=== PATIENT | female | born 1995 | race Caucasian/White ===

== ENCOUNTER 2017-06-20 09:18 | Emergency (ER) | payer MEDICAID, OTHER ==
--- NOTE | 2017-06-20 10:14 | ED Physician Documentation ---
PD HPI SKIN - Stated complaint Stated Complaint: RASH ON NECK - Chief complaint Chief Complaint: Wound - History obtained from History obtained from: Patient, Family - History of Present Illness Timing - onset: How many days ago (3) Timing - duration: Days (3) Timing - details: Gradual onset, Still present Location: Neck Quality / character: Itchy, Discolored Improved by: Benadryl, Steroid cream Contributing factors: Unknown Similar symptoms before: Diagnosis (contact dermatitis) Recently seen: Not recently seen - Additional information Additional information: 22-year-old female is developed a rash around her neck. She has had something like this similarly previously with a contact dermatitis. She required a short course of steroid with that. She did get some hydrocortisone cream yesterday she applied it to the area she has not had improvement and she is come to the emergency department. She is uncertain about what she is reactive to she does believe that the last time this happened where it was not responsive to local measures it was a result of a cream she put on her neck with a scent in it. Review of Systems Constitutional: denies: Fever Eyes: denies: Decreased vision Nose: denies: Congestion Throat: denies: Sore throat Respiratory: denies: Dyspnea, Cough, Wheezing GI: denies: Vomiting PD PAST MEDICAL HISTORY - Past Surgical History Past Surgical History: No - Present Medications Home Medications: Ambulatory Orders Medication Instructions Recorded Confirmed Prednisone 40 mg PO DAILY #20 tab.ds.pk 06/20/17 - Allergies Allergies/Adverse Reactions: Allergies Allergy/AdvReac Type Severity Reaction Status Date / Time No Known Drug Allergies Allergy Verified 11/30/14 16:21 - Social History Does the pt smoke?: No Smoking Status: Never smoker Does the pt drink ETOH?: No Does the pt have substance abuse?: No - Immunizations Immunizations are current?: No - POLST Patient has POLST: No PD ED PE NORMAL - Vitals Vital signs reviewed: Yes (Normal) - General General: Alert and oriented X 3, No acute distress, Well developed/nourished - HEENT HEENT: Atraumatic, PERRL, EOMI - Neck Neck: Supple, no meningeal sign, No bony TTP, Other (There is a fine reticulated nonspecific rash to the neck in the distribution of a necklace and this spares the back of the neck. ) - Respiratory Respiratory: No respiratory distress - Derm Derm: Normal color, Warm and dry - Extremities Extremities: No deformity, No edema - Neuro Neuro: No motor deficit, No sensory deficit Eye Opening: Spontaneous Motor: Obeys Commands Verbal: Oriented GCS Score: 15 - Psych Psych: Normal mood, Normal affect Results - Vitals Vitals: Vital Signs - 24 hr 06/20/17 06/20/17 09:32 10:24 Temperature 36.4 C L Heart Rate 79 82 Respiratory 18 15 Rate Blood Pressure 112/64 121/71 O2 Saturation 98 99 Oxygen O2 Source Room air PD MEDICAL DECISION MAKING - ED course Complexity details: considered differential, d/w patient, d/w family ED course: 22-year-old female to contact dermatitis to her neck has not improved with use of 1% hydrocortisone and washing and we will place her on a short course of prednisone. This has worked for her previously. Departure - Departure Disposition: Home, Self Care Clinical Impression: Contact dermatitis Qualifiers: Contact dermatitis type: allergic Contact dermatitis trigger: unspecified trigger Qualified Code(s): L23.9 - Allergic contact dermatitis, unspecified cause Condition: Stable Instructions: ED Dermatitis Contact Follow-Up: Akira Quijano DO [Primary Care Provider] - Prescriptions: Prednisone 40 mg PO DAILY #20 tab.ds.pk Discharge Date/Time: 06/20/17 10:25
[2017-06-20 10:25] VITALS: BP 121/71
== END 2017-06-20 10:25 | disposition home or self-care (01) ==
LOC: ED 09:18
DX: L23.9 Allergic contact dermatitis, unspecified cause (principal)
CPT/HCPCS: 99283

== ENCOUNTER 2018-06-29 21:51 | Emergency (ER) | payer OTHER ==
[2018-06-29 22:39] LABS: BILIRUBIN,URINE NEGATIVE (NEGATIVE); GLUCOSE, URINE (UA) NEGATIVE (NEGATIVE); KETONES,URINE (UA) NEGATIVE (NEGATIVE); LEUKOCYTE ESTERASE, URINE LARGE (NEGATIVE); NITRITE,URINE NEGATIVE (NEGATIVE); OCCULT BLOOD,URINE SMALL (NEGATIVE); PH,URINE 6.5 PH (5.0-7.5); PROTEIN,URINE NEGATIVE (NEGATIVE); UROBILINOGEN,URINE 0.2 (NORMAL) E.U./dL (NORMAL)
[2018-06-29 22:41] LABS: CLARITY,URINE CLEAR (CLEAR); HCG UR QUAL NEGATIVE
[2018-06-29 23:02] LABS: SQUAMOUS EPITHELIAL CELL,UR FEW Squamous (<= Few)
[2018-06-29 23:03] LABS: BACTERIA,URINE Rare /HPF (None Seen); YEAST,URINE PRESENT
[2018-06-29] MEDS ORDERED: FLUCONAZOLE 100 MG TABLET PO STA (23:18)
[2018-06-29] MEDS ORDERED: metroNIDAZOLE 250 MG TABLET PO STA (23:18)
--- NOTE | 2018-06-29 23:26 | ED Physician Documentation ---
PD HPI FEMALE - Stated complaint Stated Complaint: FEMALE - Chief complaint Chief Complaint: Abd Pain - History obtained from History obtained from: Patient - History of Present Illness Timing - onset: How many days ago (several days) Timing - duration: Days (several) Timing - details: Gradual onset Pain level max: 0 Pain level max: 0 Associated symptoms: Vaginal discharge (white), Other (vaginal itching). No: Dysuria, Urinary frequency Contributing factors: Sexually active (unprotected sex a few weeks ago). No: Similar symptoms before: Has not had sx before Recently seen: Not recently seen Review of Systems Constitutional: denies: Fever, Chills GI: denies: Vomiting : denies: Now EGA Skin: denies: Rash Musculoskeletal: denies: Neck pain, Back pain Neurologic: denies: Headache PD PAST MEDICAL HISTORY - Past Medical History Past Medical History: No - Past Surgical History Past Surgical History: No - Present Medications Home Medications: Ambulatory Orders Medication Instructions Recorded Confirmed Metronidazole [Flagyl] 500 mg PO BID #14 tablet 06/29/18 - Allergies Allergies/Adverse Reactions: Allergies Allergy/AdvReac Type Severity Reaction Status Date / Time No Known Drug Allergies Allergy Verified 06/29/18 21:56 - Living Situation Living Arrangement: reports: At home - Social History Does the pt smoke?: No Smoking Status: Never smoker Does the pt drink ETOH?: No Does the pt have substance abuse?: No - Immunizations Immunizations are current?: No - POLST Patient has POLST: No PD ED PE NORMAL - Vitals Vital signs reviewed: Yes - General General: Alert and oriented X 3, No acute distress, Well developed/nourished - HEENT HEENT: Moist mucous membranes - Neck Neck: Supple, no meningeal sign - Cardiac Cardiac: RRR, Strong equal pulses - Respiratory Respiratory: No respiratory distress, Clear bilaterally - Abdomen Abdomen: Soft, Non tender, Non distended - Female Female : Global Account Executive present (Ariadna RAMIRES), Other (Moderate white discharge. Vaginal irritation present. Normal-appearing cervix. No cervical motion tenderness.) - Back Back: No spinal TTP - Derm Derm: Warm and dry - Extremities Extremities: No deformity - Neuro Neuro: Alert and oriented X 3 - Psych Psych: Normal mood, Normal affect Results - Vitals Vitals: Vital Signs - 24 hr 06/29/18 06/29/18 21:52 23:31 Temperature 36.2 C L 36.9 C Heart Rate 89 73 Respiratory 18 16 Rate Blood Pressure 115/83 H 125/87 H O2 Saturation 100 98 Oxygen O2 Source Room air - Labs Labs: Microbiology 06/29/18 22:15 Wet Prep - Final Genital - Vaginal 06/29/18 22:15 BHAVIN Preparation - Final Fluid - Vaginal Laboratory Tests 06/29/18 22:25 Urine Color YELLOW Urine Clarity CLEAR Urine pH 6.5 Ur Specific [place] 1.025 Urine Protein NEGATIVE Urine Glucose (UA) NEGATIVE Urine Ketones NEGATIVE Urine Occult Blood SMALL H Urine Nitrite NEGATIVE Urine Bilirubin NEGATIVE Urine Urobilinogen 0.2 (NORMAL) Ur Leukocyte Esterase LARGE H Urine RBC 6-10 H Urine WBC 6-10 H Ur Squamous Epith Cells FEW Squamous Urine Bacteria Rare Urine Yeast PRESENT Ur Microscopic Review INDICATED Urine Culture Comments INDICATED Urine HCG, Qual NEGATIVE PD MEDICAL DECISION MAKING - ED course Complexity details: reviewed results, re-evaluated patient, considered differential, d/w patient ED course: 23-year-old female with what appears to be bacterial vaginitis as well as a yeast infection. Given Diflucan here. Will place on Flagyl for home. Abdullahi orrhea and Chlamydia testing were also sent, though less likely on clinical exam. Patient counseled regarding signs and symptoms for which I believe and urgent re-evaluation would be necessary. Patient with good understanding of and agreement to plan and is comfortable going home at this time This document was made in part using voice recognition software. While efforts are made to proofread this document, sound alike and grammatical errors may occur. Departure - Departure Disposition: Home, Self Care Clinical Impression: Bacterial vaginitis, Vaginal yeast infection Condition: Good Instructions: ED Vaginosis Bacterial, ED Vaginal Infec Fungal Leonila Follow-Up: your,doctor in 1 week if not better [Other] Prescriptions: Metronidazole [Flagyl] 500 mg PO BID #14 tablet Comments: Take the Flagyl until gone. Return if you worsen. Your prescription was sent to [facility] in [place] Discharge Date/Time: 06/29/18 23:47
[2018-06-29 23:32] VITALS: BP 125/87
== END 2018-06-29 23:47 | disposition home or self-care (01) ==
LOC: ED 21:51
DX: N76.0 Acute vaginitis (principal); B96.89 Other specified bacterial agents as the cause of diseases classified elsewhere; B37.3 Candidiasis of vulva and vagina
CPT/HCPCS: 81001; 81025; 87086; 87210; 87220; 87491; 87591; 99283; A9270; 81003

== ENCOUNTER 2018-08-19 21:21 | Emergency (ER) | payer OTHER ==
[2018-08-19 21:36] VITALS: BP 130/73
[2018-08-19 21:52] LABS: BILIRUBIN,URINE NEGATIVE (NEGATIVE); GLUCOSE, URINE (UA) NEGATIVE (NEGATIVE); KETONES,URINE (UA) NEGATIVE (NEGATIVE); LEUKOCYTE ESTERASE, URINE MODERATE (NEGATIVE); NITRITE,URINE POSITIVE (NEGATIVE); OCCULT BLOOD,URINE TRACE-INTA (NEGATIVE); PROTEIN,URINE 30 mg/dL (NEGATIVE); UROBILINOGEN,URINE 0.2 (NORMAL) E.U./dL (NORMAL)
[2018-08-19 22:00] LABS: BACTERIA,URINE Many /HPF (None Seen); CLARITY,URINE CLOUDY (CLEAR); SQUAMOUS EPITHELIAL CELL,UR NONE SEEN (<= Few)
[2018-08-19 22:02] LABS: HCG UR QUAL NEGATIVE
[2018-08-19] MEDS ORDERED: PHENAZOPYRIDINE 100 MG TABLET PO STA (22:08)
[2018-08-19] MEDS ORDERED: cephALEXin 250 MG CAPSULE PO STA (22:08)
--- NOTE | 2018-08-19 22:09 | ED Physician Documentation ---
PD HPI FEMALE - Stated complaint Stated Complaint: FEMALE - Chief complaint Chief Complaint: UTI - History obtained from History obtained from: Patient - History of Present Illness Timing - onset: Other (3 days) Timing - duration: Days (3) Timing - details: Gradual onset Severity Comments: Moderate Associated symptoms: Dysuria, Urinary frequency. No: Fever, Vaginal pain, Vaginal bleeding, Vaginal discharge Contributing factors: No: Similar symptoms before: No diagnosis Recently seen: Not recently seen Review of Systems Constitutional: denies: Fever, Chills Nose: denies: Congestion Throat: denies: Sore throat Cardiac: denies: Chest pain / pressure Respiratory: denies: Cough GI: denies: Abdominal Pain : reports: Dysuria Musculoskeletal: denies: Back pain Neurologic: denies: Generalized weakness PD PAST MEDICAL HISTORY - Past Surgical History Past Surgical History: No - Present Medications Home Medications: Ambulatory Orders Medication Instructions Recorded Confirmed Cephalexin [Keflex] 500 mg PO BID #10 capsule 08/19/18 Phenazopyridine HCl [Pyridium] 200 mg PO TID PRN #6 tablet 08/19/18 - Allergies Allergies/Adverse Reactions: Allergies Allergy/AdvReac Type Severity Reaction Status Date / Time No Known Drug Allergies Allergy Verified 08/19/18 21:36 - Social History Does the pt smoke?: No Smoking Status: Never smoker Does the pt drink ETOH?: No Does the pt have substance abuse?: No - Immunizations Immunizations are current?: No - POLST Patient has POLST: No PD ED PE NORMAL - General General: Alert and oriented X 3, No acute distress - HEENT HEENT: Atraumatic, PERRL, EOMI, Ears normal - Cardiac Cardiac: RRR, Strong equal pulses - Respiratory Respiratory: No respiratory distress, Clear bilaterally - Abdomen Abdomen: Soft, Non tender - Back Back: No CVA TTP - Derm Derm: Normal color - Extremities Extremities: No deformity - Neuro Neuro: Alert and oriented X 3, Normal speech - Psych Psych: Normal affect Results - Vitals Vitals: Vital Signs - 24 hr 08/19/18 21:30 Temperature 36.5 C Heart Rate 78 Respiratory 16 Rate Blood Pressure 130/73 O2 Saturation 98 Oxygen O2 Source Room air - Labs Labs: Laboratory Tests 08/19/18 21:44 Urine Color YELLOW Urine Clarity CLOUDY Urine pH 7.0 Ur Specific [place] 1.025 Urine Protein 30 H Urine Glucose (UA) NEGATIVE Urine Ketones NEGATIVE Urine Occult Blood TRACE-INTA Urine Nitrite POSITIVE H Urine Bilirubin NEGATIVE Urine Urobilinogen 0.2 (NORMAL) Ur Leukocyte Esterase MODERATE H Urine RBC 6-10 H Urine WBC >25 H Ur Squamous Epith Cells NONE SEEN Urine Bacteria Many H Urine Culture Comments INDICATED Urine HCG, Qual NEGATIVE PD MEDICAL DECISION MAKING - ED course ED course: The patient appears to have a simple cystitis and appears appropriate for discharge and ongoing outpatient management. I discussed the findings and plan with the patient who understands and agrees to plan. I discussed warning signs and recommended returning to the emergency department for any worsening or concerns Departure - Departure Disposition: Home, Self Care Clinical Impression: Acute cystitis Qualifiers: Hematuria presence: without hematuria Qualified Code(s): N30.00 - Acute cystitis without hematuria Condition: Good Instructions: ED UTI Cystitis Female Follow-Up: Akira Quijano DO [Primary Care Provider] - Within 1 week Prescriptions: Cephalexin [Keflex] 500 mg PO BID #10 capsule Phenazopyridine HCl [Pyridium] 200 mg PO TID PRN #6 tablet PRN Reason: dysuria Comments: Please return to the emergency department for any worsening or concerns
== END 2018-08-19 22:16 | disposition home or self-care (01) ==
LOC: ED 21:21
DX: N30.00 Acute cystitis without hematuria (principal)
CPT/HCPCS: 81001; 81025; 87086; 99283; A9270; 87181

== ENCOUNTER 2019-05-30 09:58 | Emergency (ER) | payer OTHER ==
[2019-05-30 10:04] VITALS: BP 122/72
[2019-05-30 10:27] LABS: RAPID STREP SCREEN Negative (Negative)
--- NOTE | 2019-05-30 12:17 | ED Physician Documentation ---
History of Present Illness - Stated complaint Stated Complaint: LT EYE PX - Chief complaint Chief Complaint: Heent - Additonal information Additional information: This is a 24-year-old female presents with cough, cold and eye irritation. She has had a cough and nasal congestion and a bit of sore throat for 4 days. She denies any shortness of breath or chest pain. Her main complaint today is that she has irritation of her left eye which began in last 24 hours and her eye was matted shut this morning she has noticed a bunch of white matter discharge from the eye when she wipes away seems to recur quickly she is only in her left eye. She denies any vision changes, no eye pain. She has had a sore throat as well Review of Systems Ears: reports: Drainage/discharge Throat: reports: Sore throat PD PAST MEDICAL HISTORY - Past Surgical History Past Surgical History: No - Present Medications Home Medications: Ambulatory Orders Medication Instructions Recorded Confirmed Benzonatate [Tessalon Perle] 100 - 200 mg PO TID PRN #30 capsule 05/30/19 Polymyxin B/Trimeth Ophth Drop 1 drops EACHEYE Q3H 7 Days #1 05/30/19 [Polytrim Ophth Drops] bottle - Allergies Allergies/Adverse Reactions: Allergies Allergy/AdvReac Type Severity Reaction Status Date / Time No Known Drug Allergies Allergy Verified 05/30/19 10:03 - Social History Does the pt smoke?: No Smoking Status: Never smoker Does the pt drink ETOH?: No Does the pt have substance abuse?: No - Immunizations Immunizations are current?: No - POLST Patient has POLST: No PD ED PE NORMAL - General General: Alert and oriented X 3 - HEENT HEENT: Other (Post pharynx erythema without exudate. uvula midline. Left conjunctiva is injected, PERRL bilaterally. Acuity normal. Careful exam reveals no signs of foreign body. Fluorescein staining shows no focal uptake. EOMI.) - Neck Neck: Supple, no meningeal sign - Cardiac Cardiac: RRR - Respiratory Respiratory: No respiratory distress, Clear bilaterally - Derm Derm: No rash - Neuro Neuro: Alert and oriented X 3 Results - Vitals Vitals: Oxygen O2 Source Room air - Labs Labs: Laboratory Tests 05/30/19 10:04 Group A Strep Rapid Negative PD MEDICAL DECISION MAKING - ED course ED course: Pt is well appearing, vitals unremarkable, she has a sore throat but strep is negative and she viral pharyngitis most likely. No signs of pneumonia, otitis. She may have a bacterial conjunctivitis given she has copious drainage, we will treat with abx drops. Fluorescein staining and exam shows no signs of other significant eye pathology. I discussed supportive care, gave dexamethasone for sore throat, and prescribed symptomatic control medications. Return precautions and follow up discussed and pt discharged. Departure - Departure Disposition: 01 Home, Self Care Clinical Impression: Conjunctivitis Qualifiers: Conjunctivitis type: acute Acute conjunctivitis type: bacterial Laterality: left Qualified Code(s): H10.32 - Unspecified acute conjunctivitis, left eye Condition: Good Instructions: ED Upper Resp Infec No Abx Tx, ED Conjunctivitis Bacterial Prescriptions: Benzonatate [Tessalon Perle] 100 - 200 mg PO TID PRN #30 capsule PRN Reason: Cough Polymyxin B/Trimeth Ophth Drop [Polytrim Ophth Drops] 1 drops EACHEYE Q3H 7 Days #1 bottle Comments: You appear To have upper respiratory infection as well as a potentially bacterial conjunctivitis. Please use the antibiotic drops as prescribed. You may try the Tessalon Perles for cough, you may also take ibuprofen and Tylenol for your cold. If you have worsening symptoms such as changes in your vision, eye pain, difficulty breathing, return to the emergency department. Discharge Date/Time: 05/30/19 12:49
[2019-05-30] MEDS ORDERED: CHERRY SYRUP 10 ML UDC PO ONE (12:36)
[2019-05-30] MEDS ORDERED: DEXAMETHASONE 10 MG/ML VIAL PO STA (12:36)
== END 2019-05-30 12:49 | disposition home or self-care (01) ==
LOC: ED 09:58
DX: H10.32 Unspecified acute conjunctivitis, left eye (principal); J02.9 Acute pharyngitis, unspecified
CPT/HCPCS: 87070; 87430; 99283; A9270

== ENCOUNTER 2021-10-14 08:00 | Outpatient (CLI) | payer MEDICAID, OTHER ==
[2021-10-14 12:43] LABS: LEUKOCYTE ESTERASE, URINE NEGATIVE (NEGATIVE)
[2021-10-14 12:44] LABS: BILIRUBIN,URINE NEGATIVE (NEGATIVE); GLUCOSE, URINE (UA) NEGATIVE (NEGATIVE); KETONES,URINE (UA) 40 mg/dL (NEGATIVE); NITRITE,URINE NEGATIVE (NEGATIVE); OCCULT BLOOD,URINE MODERATE (NEGATIVE); PROTEIN,URINE NEGATIVE (NEGATIVE); UROBILINOGEN,URINE 0.2 (NORMAL) E.U./dL (NORMAL)
[2021-10-14 12:56] LABS: BACTERIA,URINE None Seen /HPF (None Seen); CLARITY,URINE CLEAR (CLEAR); MUCUS,URINE Few Strands; RBC,URINE 0-5 /HPF (0-5); SQUAMOUS EPITHELIAL CELL,UR FEW Squamous (<= Few); WBC,URINE 0-3 /HPF (0-5)
== END 2021-10-14 23:59 | disposition home or self-care (01) ==
LOC: LAB.WC 08:00
PROVIDERS: ATTEND Obstetrics & Gynecology
DX: Z32.01 Encounter for pregnancy test, result positive (principal)
CPT/HCPCS: 81001; 87086

== ENCOUNTER 2021-10-28 21:04 | Outpatient (CLI) | payer MEDICAID ==
--- NOTE | 2021-10-28 23:57 | Ultrasound Report ---
PROCEDURE: OB First Trimester w/TV INDICATIONS: POSITIVE TEST OUTSIDE/PRIOR DATING DATA: Last menstrual period (LMP): 08/14/2020. LMP-based estimated date of delivery (LISA): 05/21/2022. First dating scan (date and location): 10/28/2021. Estimated date of delivery (LISA) from first dating scan: 06/06/2022. TECHNIQUE: Real-time scanning was performed of the fetus and maternal pelvic organs, with image documentation. Endovaginal scanning was also performed to better visualize the fetus and maternal ovaries. COMPARISON: None FINDINGS: Embryo: Single intrauterine gestational sac is seen with fetus and yolk sac seen. [place]-rump length measures 1.88 cm estimated gestational age is 8 weeks, 3 days. Heart rate: 169 bpm. Small subchorionic bleed is seen measures 2.8 x 2.4 x 0.7 cm in size. Maternal organs: Corpus luteal cyst is seen in left ovary and measures 1.7 x 1.5 x 2.2 cm in size. IMPRESSION: 1. Single live intrauterine gestation with fetus and yolk sac seen. heart rate is 169 bpm. Bea mated gestational age is 8 weeks, 3 days. 2. Small subchorionic bleed as above. 3. Corpus luteal cyst seen in left ovary as above. Reviewed by: Tyler Clement MD on 10/29/2021 12:00 AM PDT Approved by: Tyler Clement MD on 10/29/2021 12:00 AM PDT Station ID: [id number]
== END 2021-10-28 21:05 | disposition home or self-care (01) ==
LOC: DI 21:04
PROVIDERS: ATTEND Obstetrics & Gynecology
DX: O46.8X1 Other antepartum hemorrhage, first trimester (principal); Z3A.08 8 weeks gestation of pregnancy; O99.891 Other specified diseases and conditions complicating pregnancy; N83.12 Corpus luteum cyst of left ovary

== ENCOUNTER 2021-11-15 10:36 | Outpatient (CLI) | payer MEDICAID ==
[2021-11-15 11:07] LABS: BASOPHILS % (AUTO) 0.6 %; EOSINOPHILS # (AUTO) 0.4 10^3/uL (0.0-0.7); EOSINOPHILS % (AUTO) 5.8 %; HCT - HEMATOCRIT 41.6 % (37.0-47.0); HGB - HEMOGLOBIN 14.4 g/dL (12.0-16.0); LYMPHOCYTES # (AUTO) 1.6 10^3/uL (1.5-3.5); LYMPHOCYTES % (AUTO) 23.6 %; MEAN CORPUSCULAR HEMOGLOBIN 29.6 pg (27.0-31.0); MEAN CORPUSCULAR HGB CONC 34.6 g/dL (32.0-36.0); MEAN CORPUSCULAR VOLUME 85.6 fL (81.0-99.0); MEAN PLATELET VOLUME 10.8 fL (7.9-10.8); MONOCYTES # (AUTO) 0.3 10^3/uL (0.0-1.0); MONOCYTES % (AUTO) 4.9 %; NEUTROPHILS # (AUTO) 4.4 10^3/uL (1.5-6.6); PLT - PLATELET COUNT 217 10^3/uL (130-450); RED BLOOD COUNT 4.86 10^6/uL (4.20-5.40); RED CELL DISTRIBUTION WIDTH 12.6 % (12.0-15.0); WHITE BLOOD COUNT 6.8 x10^3/uL (4.8-10.8)
[2021-11-16 04:09] LABS: HBsAG SCREEN Negative (Negative); HIV SCREEN 4TH GENERATION Non Reactive (Non Reactive)
[2021-11-16 06:10] LABS: HCV AB <0.1 s/co ratio (0.0-0.9)
[2021-11-16 07:10] LABS: RPR Non Reactive (Non Reactive)
[2021-11-16 08:09] LABS: VARICELLA-ZOSTER AB IGG 345 index (Immune >165)
== END 2021-11-15 10:37 | disposition home or self-care (01) ==
LOC: LAB 10:36
PROVIDERS: ATTEND Obstetrics & Gynecology
DX: Z36.89 Encounter for other specified antenatal screening (principal)
CPT/HCPCS: 36415; 85025; 86592; 86762; 86787; 86803; 86850; 86900; 86901; 87340; 87389

== ENCOUNTER 2021-12-02 08:00 | Outpatient (CLI) | payer MEDICAID ==
[2021-12-02 23:51] LABS: BACTERIAL VAGINOSIS DNA POSITIVE (NEGATIVE); CANDIDA GLABRATA DNA NEGATIVE (NEGATIVE); CANDIDA GROUP DNA POSITIVE (NEGATIVE); CANDIDA KRUSEI DNA NEGATIVE (NEGATIVE); TRICHOMONAS VAGINALIS DNA NEGATIVE (NEGATIVE)
== END 2021-12-02 23:59 | disposition home or self-care (01) ==
LOC: LAB.WC 08:00
PROVIDERS: ATTEND Obstetrics & Gynecology
DX: Z11.3 Encounter for screening for infections with a predominantly sexual mode of transmission (principal)
CPT/HCPCS: 81514

== ENCOUNTER 2021-12-26 08:00 | Outpatient (CLI) | payer MEDICAID ==
[2021-12-26 21:03] LABS: CHLAMYDIA TRACHOMATIS DNA NEGATIVE (NEGATIVE); NEISSERIA GONORRHOEAE DNA NEGATIVE (NEGATIVE); TRICHOMONAS VAGINALIS DNA NEGATIVE (NEGATIVE)
== END 2021-12-26 23:59 | disposition home or self-care (01) ==
LOC: LAB.WC 08:00
PROVIDERS: ATTEND Obstetrics & Gynecology
DX: Z34.00 Encounter for supervision of normal first pregnancy, unspecified trimester (principal); Z36.89 Encounter for other specified antenatal screening
CPT/HCPCS: 87491; 87591; 87661

== ENCOUNTER 2022-03-16 11:17 | Outpatient (CLI) | payer MEDICAID ==
[2022-03-16 12:27] LABS: HGB - HEMOGLOBIN 12.7 g/dL (12.0-16.0); MEAN CORPUSCULAR HEMOGLOBIN 30.4 pg (27.0-31.0); MEAN CORPUSCULAR HGB CONC 34.3 g/dL (32.0-36.0); MEAN CORPUSCULAR VOLUME 88.5 fL (81.0-99.0); MEAN PLATELET VOLUME 10.9 fL (7.9-10.8); RED BLOOD COUNT 4.18 10^6/uL (4.20-5.40); WHITE BLOOD COUNT 8.3 x10^3/uL (4.8-10.8)
== END 2022-03-16 11:18 | disposition home or self-care (01) ==
LOC: LAB 11:17
PROVIDERS: ATTEND Obstetrics & Gynecology
DX: Z34.90 Encounter for supervision of normal pregnancy, unspecified, unspecified trimester (principal); Z36.89 Encounter for other specified antenatal screening
CPT/HCPCS: 36415; 82950; 85027

== ENCOUNTER 2022-05-04 22:19 | Outpatient (CLI) | payer MEDICAID ==
--- NOTE | 2022-05-05 13:26 | Ultrasound Report ---
PROCEDURE: OB F/U or Repeat INDICATIONS: UTERINE SIZE DATE DISCREPANCY OUTSIDE/PRIOR DATING DATA: Last menstrual period (LMP): 08/14/2020. LMP-based estimated date of delivery (LISA): 05/21/2022. First dating scan (date and location): 10/28/2021. Estimated date of delivery (LISA) from first dating scan: 06/06/2022. TECHNIQUE: Real-time scanning was performed of the fetus, with image documentation and biometric measurements. Endovaginal scanning: Not performed COMPARISON: 01/16/2022 FINDINGS: General: A single living intrauterine gestation is present. Presentation: Vertex Placenta: Placental position is right posterior, without previa. Amniotic fluid index: 19.7 cm, normal for gestational age. heart rate: 141 beats per minute. Maternal cervical canal: Not visualized. biometrics: Biparietal diameter: 8.8 cm, 35 weeks 5 days Head circumference: 33.0 cm, 37 weeks 4 days Abdominal circumference: 32.5 cm, 36 weeks 3 days Femur length: 6.8 cm, 35 weeks 0 days Composite gestational age from present scan: 36 weeks 1 day Estimated weight and percentile: 2841g, 71st percentile Measurement variability in biometric dating: +/- 10 days from 12-20 weeks gestation, +/- 2 weeks from 20-30 weeks gestation, +/- 3 weeks at 30 weeks gestation or more. Other: Not applicable. IMPRESSION: 1. Single living intrauterine in vertex presentation. 2. Normal interval growth, estimated weight at the 71st percentile. Reviewed by: Melvin Sanz MD on 05/05/2022 12:25 PM [facility] Approved by: Melvin Sanz MD on 05/05/2022 12:25 PM [facility] Station ID: [id number]
== END 2022-05-04 22:20 | disposition home or self-care (01) ==
LOC: DI 22:19
PROVIDERS: ATTEND Nurse Practitioner
DX: O26.843 Uterine size-date discrepancy, third trimester (principal); Z3A.36 36 weeks gestation of pregnancy

== ENCOUNTER 2022-05-11 08:00 | Outpatient (CLI) | payer MEDICAID | END 2022-05-11 23:59 | disposition home or self-care (01) | LOC: LAB.WC 08:00 | PROVIDERS: ATTEND Nurse Practitioner | DX: Z36.85 Encounter for antenatal screening for Streptococcus B (principal) | CPT/HCPCS: 87797 ==

== ENCOUNTER 2022-05-15 08:00 | Outpatient (CLI) | payer MEDICAID ==
[2022-05-15 22:37] LABS: BACTERIAL VAGINOSIS DNA POSITIVE (NEGATIVE); CANDIDA GLABRATA DNA NEGATIVE (NEGATIVE); CANDIDA GROUP DNA POSITIVE (NEGATIVE); CANDIDA KRUSEI DNA NEGATIVE (NEGATIVE); TRICHOMONAS VAGINALIS DNA NEGATIVE (NEGATIVE)
== END 2022-05-15 23:59 | disposition home or self-care (01) ==
LOC: LAB.WC 08:00
PROVIDERS: ATTEND Obstetrics & Gynecology
DX: N76.0 Acute vaginitis (principal)
CPT/HCPCS: 81514

== ENCOUNTER 2022-06-05 11:34 | Inpatient (IN) | payer MEDICAID ==
[2022-06-05] MEDS ORDERED: fentaNYL 100 MCG/2 ML VIAL IVP PRN (12:40)
[2022-06-05] MEDS ORDERED: TERBUTALINE 1 MG/ML VIAL SUBQ PRN (12:40)
[2022-06-05] MEDS ORDERED: METHYLERGONOVINE 0.2 MG/ML VIAL IM PRN (12:40)
[2022-06-05] MEDS ORDERED: SODIUM CHLORIDE FLUSH 0.9% 10 ML SYRINGE IVP PRN (12:40)
[2022-06-05] MEDS ORDERED: CARBOPROST TROMETHAMINE 250 MCG/ML AMP IM PRN (12:40)
[2022-06-05] MEDS ORDERED: lidocaine 1% 20 ML MDV ID PRN (12:40)
[2022-06-05] MEDS ORDERED: miSOPROStoL 200 MCG TABLET PR PRN (12:40)
[2022-06-05] MEDS ORDERED: OXYTOCIN 10 UNIT/ML VIAL IM PRN (12:40)
[2022-06-05] MEDS ORDERED: LABETALOL 20 MG/4 ML SYRINGE IVP PRN ×3 (12:40)
[2022-06-05] MEDS ORDERED: NIFEdipine 10 MG CAPSULE PO PRN (12:40)
[2022-06-05] MEDS ORDERED: OXYTOCIN/SODIUM CHLORIDE 500 ML IV PRN (12:40)
[2022-06-05] MEDS ORDERED: miSOPROStoL 200 MCG TABLET BC PRN (12:40)
[2022-06-05] MEDS ORDERED: TRANEXAMIC ACID IN NACL 1,000 MG/100 ML BAG IV PRN (12:40)
[2022-06-05] MEDS ORDERED: hydrALAZINE INJ 20 MG/ML VIAL IVP PRN ×2 (12:40)
[2022-06-05] MEDS ORDERED: LACTATED RINGERS 1,000 ML IV SCH (13:00)
--- NOTE | 2022-06-05 13:13 | HISTORY & PHYSICAL EXAMINATION ---
Admit History - : 2 Parity: 1 Care: positive: [facility] Risk/History: positive: None Complications This : positive: None Smoking Status: Never smoker - Mother's Labs Mother's Blood Type: positive: O Mother's RH: positive: Positive GBS: positive: Group B Step Negative Rubella Status: positive: Immune - Other Maternal History Other Maternal History: HPI: 27-year-old -0-0-1 at 39 weeks 6 days gestation presents today for induction of labor. She did notice recent abdominal pruritus, and this improved with triamcinolone, but had worsening symptoms and began to have [id number] involvement and less controlled with the ointment. She has good movement. Denies loss of fluid. No TROY/BV or RUQP. No vaginal bleeding. Denies nausea and vomiting. Denies urinary urgency or dysuria. All other symptoms reviewed and were negative except per HPI. Course LMP: 08/14/2021 LISA by LMP: 05/21/2022 US Date 10/28/2021, US Age 8 weeks 3 days, LISA by ultrasound: 06/06/2022 Final LISA: 06/06/2022 by 8-week ultrasound PEP: Much improved with triamcinolone. Pre- Weight:162.6 BMI:28.01 O pos/Rubella immune VZV: immune Genetic testing:Declined after counselling FAS:WNL, 350g 75%ile, 3VC, posterior placenta w/o previa, QUINTON 16cm growth us 05/04- normal interval growth 71st percentile, posterior placenta, vertex Glucola:132 Influenza: 03/20 TDAP 03/20 GBS @ 36.2- Negative HSV: Denies in self and partner. Breast pump Rx: Formula feeding DECLINES PUMP MOD:Anticipate .Membrane sweep at 40 weeks and possible 41-week induction if not in labor. pp contraception:Unsure, but does not want OCPs. pap:Collected 10/27/2021 normal, HPV negative GCCT: Negative PMH Unremarkable PSH No prior surgeries OB History -0-0-1 1. 02/22/2021: 38 weeks 6 days gestation, , [place] Denies tobacco, alcohol, drugs Family History No pertinent family history Allergies No known drug allergies Medications vitamin Triamcinolone ointment as needed Physical exam: General: Alert, oriented, no acute distress Head: Normal cephalic atraumatic Eyes: PERRLA, extraocular motions intact. Respiratory: Normal rate of respiration. No accessory muscle use, normal respiratory effort. Cardiovascular: Regular rate and rhythm Abdomen: Gravid, nontender, nondistended Extremities: Normal range of motion Neuro: Oriented x3. Normal movements Psych: Appropriate mood and affect. Normal judgment and insight SVE: FHT: 140 bpm baseline, moderate variability, accelerations present, no decelerations. Reactive. Category 1. [place]: Occasional Plan 27-year-old -0-0-1 at 39 weeks 6 days gestation here for induction of labor 1. Induction of labor -Plan for cervical ripening with misoprostol as cervix is unfavorable. -Plan for amniotomy and oxytocin if ripening is successful. 2. At 39 weeks gestation 3. Pruritus -Improved with triamcinolone, and symptoms improved after moisturizing skin. Unlikely to be a significant concern, but will check liver enzymes. Bile acids will take too long to return. Meds/Allgy - Home Medications Home Medications: Ambulatory Orders Medication Instructions Recorded Confirmed Benzonatate [Tessalon Perle] 100 - 200 mg PO TID PRN #30 capsule 05/30/19 Polymyxin B/Trimeth Ophth Drop 1 drops EACHEYE Q3H 7 Days #1 05/30/19 [Polytrim Ophth Drops] bottle - Allergies Allergies/Adverse Reactions: Allergies Allergy/AdvReac Type Severity Reaction Status Date / Time No Known Drug Allergies Allergy Verified 05/30/19 10:03 Plan for Labor - Plan For Labor I expect patient to be DC'd or transferred within 96 hours.: Yes
[2022-06-05 13:18] LABS: BASOPHILS % (AUTO) 0.4 %; EOSINOPHILS # (AUTO) 0.3 10^3/uL (0.0-0.7); EOSINOPHILS % (AUTO) 3.4 %; HCT - HEMATOCRIT 36.8 % (37.0-47.0); LYMPHOCYTES # (AUTO) 1.6 10^3/uL (1.5-3.5); LYMPHOCYTES % (AUTO) 19.6 %; MEAN CORPUSCULAR HEMOGLOBIN 27.1 pg (27.0-31.0); MEAN CORPUSCULAR HGB CONC 32.6 g/dL (32.0-36.0); MEAN CORPUSCULAR VOLUME 83.3 fL (81.0-99.0); MEAN PLATELET VOLUME 12.7 fL (7.9-10.8); MONOCYTES # (AUTO) 0.6 10^3/uL (0.0-1.0); MONOCYTES % (AUTO) 7.7 %; NEUTROPHILS # (AUTO) 5.4 10^3/uL (1.5-6.6); NEUTROPHILS % (AUTO) 68.6 %; PLT - PLATELET COUNT 163 10^3/uL (130-450); RED BLOOD COUNT 4.42 10^6/uL (4.20-5.40); WHITE BLOOD COUNT 7.9 x10^3/uL (4.8-10.8)
[2022-06-05 13:28] LABS: ALBUMIN 3.1 g/dL (3.2-5.5); ALBUMIN/GLOBULIN RATIO 0.8 (1.0-2.2); BILIRUBIN,TOTAL 0.7 mg/dL (0.2-1.0); CALCIUM 8.7 mg/dL (8.5-10.3); CREATININE 0.4 mg/dL (0.4-1.0); POTASSIUM 3.7 mmol/L (3.5-5.0); TOTAL PROTEIN 6.9 g/dL (6.7-8.2)
[2022-06-05] MEDS: miSOPROStoL 100 MCG TABLET BC SCH ×3 (13:34→21:45)
[2022-06-05] MEDS: hydrOXYzine PAMOATE 25 MG CAPSULE PO PRN (18:18)
[2022-06-05] MEDS: SODIUM CHLORIDE FLUSH 0.9% 10 ML SYRINGE IVP SCH (23:34)
[2022-06-06] MEDS: hydrOXYzine PAMOATE 25 MG CAPSULE PO PRN (02:56)
[2022-06-06] MEDS: miSOPROStoL 100 MCG TABLET BC SCH ×2 (03:03→07:40)
--- NOTE | 2022-06-06 07:35 | PROVIDER PROGRESS NOTE ---
Labor Progress Note - Uterine Monitoring Uterine Monitoring Mode: positive: External toco Contraction Frequency (min/apart): Irregular, but this approximate every 2 to 6 minutes Contraction Intensity: positive: Mild - Monitoring Monitor Mode: positive: External ultrasound Heart Rate Baseline: 140 Heart Rate Variability: positive: Moderate (6-25 bmp) Accelerations: positive: Present, 15x15 Decelerations: positive: None Strip Review: positive: Category I - Vaginal Exam Dilation (in cm): 2 Effacement (%): 30 Station: -3 Cervical Position: Posterior - Labor Progress Note Labor Progress Note/Additional Text: Patient's cervical exam mildly change, but would benefit from more misoprostol for cervical ripening. Cervix very high and posterior and head not well engaged. Plan to recheck after 2 additional doses.
[2022-06-06] MEDS ORDERED: miSOPROStoL 100 MCG TABLET BC SCH (12:00)
--- NOTE | 2022-06-06 13:33 | PROVIDER PROGRESS NOTE ---
Labor Progress Note - Uterine Monitoring Uterine Monitoring Mode: positive: External toco Contraction Frequency (min/apart): 2-4 Contraction Intensity: positive: Mild Uterine Resting Tone: positive: Soft - Monitoring Monitor Mode: positive: External ultrasound Heart Rate Baseline: 150 Heart Rate Variability: positive: Moderate (6-25 bmp) Accelerations: positive: Present, 15x15 Decelerations: positive: None Strip Review: positive: Category I - Vaginal Exam Dilation (in cm): 2 Effacement (%): 30 Station: -3 Cervical Position: Posterior - Labor Progress Note Labor Progress Note/Additional Text: 27yo at 40w admitted for elective IOL, possible cholestasis - Received misoprostol 25mcg buccally x5. Minimal cervical change and still /-3. Plan for one more dose of 50mcg misoprostol. Then will likely start Pitocin. - Continue to monitor
[2022-06-06] MEDS: LACTATED RINGERS 1,000 ML CERVICA030 SCH ×2 (16:30→23:25)
--- NOTE | 2022-06-06 19:23 | ANESTHESIA ---
Pre-Anesthesia VS, & Labs - Diagnosis IUP, term labor - Procedure epidural for Vital Signs: Temp Pulse Resp BP Pulse Ox O2 Flow Rate 36.5 C 06/05/22 12:12 Height: 5 ft 4 in Weight (kg): 81.647 kg Body Mass Index: 30.9 BMI Classification: Obese - NPO Last Fluid Intake: t/o day Last Food Intake: lunch - Is Patient ?: Yes - Lab Results Current Lab Results: Laboratory Tests 06/05/22 12:15: Sodium 131 L, Potassium 3.7, Chloride 104, Carbon Dioxide 19 L, Anion Gap 8.0, BUN 10, Creatinine 0.4, Estimated GFR (MDRD) 193, Glucose 97, Calcium 8.7, Total Bilirubin 0.7, AST 17, ALT 11, Alkaline Phosphatase 213 H, Total Protein 6.9, Albumin 3.1 L, Globulin 3.8, Albumin/Globulin Ratio 0.8 L 06/05/22 12:15: WBC 7.9, RBC 4.42, Hgb 12.0, Hct 36.8 L, MCV 83.3, MCH 27.1, MCHC 32.6, RDW 13.0, Plt Count 163, MPV 12.7 H, Neut # (Auto) 5.4, Lymph # (Auto) 1.6, [place] # (Auto) 0.6, Eos # (Auto) 0.3, Baso # (Auto) 0.0, Absolute Nucleated RBC 0.00, Nucleated RBC % 0.0 06/05/22 12:15: Blood Type O POSITIVE, Antibody Screen NEGATIVE Lab results reviewed: Yes Fish Bones: 06/05/22 12:15 06/05/22 12:15 Home Medications and Allergies Active Medications Carboprost Tromethamine (Carboprost Tromethamine 250 Mcg/Ml Amp) 250 mcg IM .ONCE PRN PRN Reason: Hemorrhage Fentanyl (Fentanyl 100 Mcg/2 Ml Vial) 50 mcg IVP Q1H PRN PRN Reason: Severe Pain (score 7-10) Hydralazine HCl (Hydralazine Inj 20 Mg/Ml Vial) 5 - 10 mg IVP Q20M PRN; Protocol PRN Reason: SBP> or= 160 OR DBP> or= 110 Hydralazine HCl (Hydralazine Inj 20 Mg/Ml Vial) 10 mg IVP .ONCE PRN; Protocol PRN Reason: SBP> or= 160 OR DBP> or= 110 Hydroxyzine Pamoate (Hydroxyzine Pamoate 25 Mg Capsule) 25 mg PO Q8HR PRN PRN Reason: ITCHING Last Admin: 06/06/22 02:56 Dose: 25 mg Oxytocin/Sodium Chloride (Pitocin/Sodium Chloride) 500 mls @ 999 mls/hr IV PRN PRN; Protocol PRN Reason: POST- HEMORR PREVENTION Tranexamic Acid (Tranexamic 1,000 Mg/100ml-Nacl) 1,000 mg in 100 mls @ 600 mls/hr IV Q30M PRN PRN Reason: EBL >1200mL and within 3hr Lactated Ringer's (Lr) 1,000 mls @ 125 mls/hr IV .Q8H [facility] Labetalol HCl (Labetalol 20 Mg/4 Ml Syringe) 20 - 80 mg IVP Q10M PRN; Protocol PRN Reason: SBP> or= 160 OR DBP> or= 110 Labetalol HCl (Labetalol 20 Mg/4 Ml Syringe) 20 mg IVP .ONCE PRN; Protocol PRN Reason: SBP> or= 160 OR DBP> or= 110 Labetalol HCl (Labetalol 20 Mg/4 Ml Syringe) 20 - 40 mg IVP Q10M PRN; Protocol PRN Reason: SBP> or= 160 OR DBP> or= 110 Lidocaine HCl (Lidocaine 1% 20 Ml Mdv) 20 ml ID .ONCE PRN PRN Reason: PERINEAL REPAIR Stop: 06/08/22 12:41 Methylergonovine Maleate (Methylergonovine 0.2 Mg/Ml Vial) 0.2 mg IM .ONCE PRN PRN Reason: Hemorrhage Misoprostol (Misoprostol 200 Mcg Tablet) 600 mcg BC .ONCE PRN PRN Reason: Hemorrhage Misoprostol (Misoprostol 200 Mcg Tablet) 800 mcg [place] .ONCE PRN PRN Reason: Hemorrhage Nifedipine (Nifedipine 10 Mg Capsule) 10 - 20 mg PO Q20M PRN; Protocol PRN Reason: SBP> or= 160 OR DBP> or= 110 Oxytocin (Oxytocin 10 Unit/Ml Vial) 10 unit IM .ONCE PRN PRN Reason: Step One if no IV access. Sodium Chloride (Sodium Chloride Flush 0.9% 10 Ml Syringe) 10 ml IVP PRN PRN PRN Reason: NEEDED PER PROVIDER ORDERS Sodium Chloride (Sodium Chloride Flush 0.9% 10 Ml Syringe) 10 ml IVP Q8H [facility] Last Admin: 06/05/22 23:34 Dose: 10 ml Terbutaline Sulfate (Terbutaline 1 Mg/Ml Vial) 0.25 mg SUBQ .ONCE PRN PRN Reason: Tachystole Allergies/Adverse Reactions: Allergies Allergy/AdvReac Type Severity Reaction Status Date / Time No Known Drug Allergies Allergy Verified 05/30/19 10:03 Anes History & Medical History - Anesthetic History Anesthesia Complications: reports: No previous complications Family history of Anesthesia Complications: Denies Family history of Malignant Hyperthermia: Denies - Medical History Cardiovascular: reports: None Pulmonary: reports: None Gastrointestinal: reports: None Neuro: reports: None Musculoskeletal: reports: None Skin: reports: None Smoking Status: Never smoker Psychosocial: reports: No issues indicated History of Cancer?: No - Surgical History Other Past Surgical History: no prior surgical history - Obstetrical History : 2 Parity: 1 Events: reports: None Complications: reports: None Exam General: Alert, Oriented x3, Cooperative Dental: WNL Mouth Openin Fingerbreadth Neck Mobility: Normal Mallampati classification: II Thyromental Distance: 4-6 cm Respiratory: No respiratory distress Cardiovascular: Regular rate Neurological: Normal speech Mental/Cognitive Status: Alert/Oriented X3, Normal for patient Cognitive Status: Within normal limits Plan Anesthesia Type: Epidural Consent for Procedure(s) Verified and Reviewed: Yes Code Status: Attempt Resuscitation ASA classification: 2-Mild systemic disease Is this case an emergency?: No
--- NOTE | 2022-06-06 19:59 | PROVIDER PROGRESS NOTE ---
Labor Progress Note - Uterine Monitoring Uterine Monitoring Mode: positive: External toco Contraction Frequency (min/apart): 2-4 Uterine Resting Tone: positive: Soft - Monitoring Monitor Mode: positive: External ultrasound Heart Rate Baseline: 150 Heart Rate Variability: positive: Moderate (6-25 bmp) Accelerations: positive: Present, 15x15 Decelerations: positive: None Strip Review: positive: Category I - Vaginal Exam Dilation (in cm): 2 Effacement (%): 30 Station: -3 Cervical Position: Posterior - Labor Progress Note Labor Progress Note/Additional Text: 27yo at 40w admitted for elective IOL, possible cholestasis - S/p misoprostol x6 - Continue Pitocin - AROM 1900, clear copious fluid - May have epidural - Anticipate
[2022-06-06] MEDS ORDERED: ONDANSETRON 4 MG/2 ML VIAL IVP PRN (20:08)
[2022-06-06] MEDS ORDERED: METOCLOPRAMIDE 10 MG/2 ML VIAL IVP PRN (20:08)
[2022-06-06] MEDS ORDERED: ePHEDrine 50 MG/ML VIAL IVP PRN (20:08)
[2022-06-06] MEDS ORDERED: NALOXONE 0.4 MG/ML VIAL IVP PRN (20:08)
[2022-06-06] MEDS ORDERED: ROPIVACAINE 0.2% 200 MG/100 ML BAG EP PRN (20:08)
[2022-06-06] MEDS ORDERED: diphenhydrAMINE INJ 50 MG/ML VIAL IVP PRN (20:08)
[2022-06-06] MEDS ORDERED: NALBUPHINE 10 MG/ML AMP IVP PRN (20:08)
[2022-06-06] MEDS ORDERED: SODIUM CHLORIDE 0.9% 1,000 ML IV ONE (23:15)
[2022-06-06] MEDS ORDERED: SODIUM CHLORIDE 0.45% 1,000 ML IV ONE (23:22)
[2022-06-06] MEDS ORDERED: LACTATED RINGERS 400 ML CERVICA030 ONE (23:22)
--- NOTE | 2022-06-07 00:31 | PROVIDER PROGRESS NOTE ---
Labor Progress Note - Uterine Monitoring Contraction Frequency (min/apart): 4 Contraction Intensity: positive: Mild to moderate Uterine Resting Tone: positive: Soft - Monitoring Monitor Mode: positive: External ultrasound Heart Rate Baseline: 150 Heart Rate Variability: positive: Minimal (0-5 bpm) Accelerations: positive: Absent Decelerations: positive: Early, Variable Strip Review: positive: Category II - Vaginal Exam Dilation (in cm): 6 Effacement (%): 100 Station: -2 Cervical Position: Midposition - Labor Progress Note Labor Progress Note/Additional Text: 27yo at 40.1w admitted for IOL - Misoprostol x6 - Started Pitocin ~1600 - AROM, clear 1900 - Epidural 2000 - IUPC placed 2240 for better monitoring of contractions. She had early and variable decelerations. Occasional late decelerations, not recurrent. Discussed option of PCD with patient for Cat 2 tracing. She is declining PCD. We will d iscontinue Pitocin for now, off 2300. Amnioinfusion started 2345 for variable decelerations. Slowly progressing now 6cm. Will allow Pitocin rest and plan to restart when variability improves.
[2022-06-07] MEDS: hydrOXYzine PAMOATE 25 MG CAPSULE PO PRN (02:33)
[2022-06-07] MEDS ORDERED: CEFAZOLIN 2G/50ML 0.9% NS 2 GM/50 ML BAG IV ONE (06:31)
[2022-06-07] MEDS ORDERED: LIDOCAINE MPF 2%-EPI 1:200000 20 ML VIAL ONE (06:53)
[2022-06-07] MEDS ORDERED: OXYTOCIN 10 UNIT/ML VIAL ONE (06:53)
[2022-06-07] MEDS ORDERED: PHENYLEPHRINE 10 MG/ML VIAL ONE (06:54)
[2022-06-07] MEDS ORDERED: ceFAZolin 1 GM VIAL ONE (07:00)
[2022-06-07] MEDS ORDERED: KETOROLAC 30 MG/ML VIAL ONE (07:58)
[2022-06-07] MEDS ORDERED: WITCH HAZEL/GLYCERIN 1 PAD TOP PRN (08:03)
[2022-06-07] MEDS ORDERED: NALOXONE 0.4 MG/ML VIAL IVP PRN ×2 (08:03→09:15)
[2022-06-07] MEDS ORDERED: HYDROCORTISONE 1% CREAM 28 GM TUBE TOP PRN (08:03)
[2022-06-07] MEDS ORDERED: OXYTOCIN/SODIUM CHLORIDE 500 ML IV PRN ×2 (08:03→10:21)
[2022-06-07] MEDS ORDERED: LACTATED RINGERS 400 ML IV ONE (08:06)
[2022-06-07] MEDS ORDERED: LACTATED RINGERS 500 ML IV ONE (08:06)
--- NOTE | 2022-06-07 08:09 | DELIVERY NOTE ---
Delivery Note - Labor Labor: positive: Augmented by ARM, Augmented by oxytocin - Infant Delivery Method Delivery Method: positive: Primary - Cervical Ripening Method Cervical Ripening Method: positive: Misoprostil - Presentation Presentation: positive: Vertex - Nuchal Cord Nuchal Cord: positive: Present (x1 reduced after delivery) - Amniotic Fluid Description Amniotic Fluid Description: positive: Clear - Delivery Outcome Delivery Outcome: positive: Livebirth - [place]: positive: Suctioned, Stimulated, Warmed sex: positive: Female - Cord Cord: positive: 3 vessels - Placenta Placenta: positive: Expressed - Estimated Blood Loss Estimated Blood Loss (in cc): 800 - Delivery Comments (Free Text/Narrative) Delivery Comments (Free Text/Narrative): See operative report, uncomplicated PCD.
--- NOTE | 2022-06-07 08:11 | OPERATIVE REPORT ---
Operative Report - General Admit Date: 06/05/22 Procedure Date: 06/07/22 Planned Procedure: Primary section Pre-Op Diagnosis: NRFHT, 40.1w, Failure to progress Procedure Performed: Primary section Post Op Diagnosis: NRFHT, 40.1w, Failure to progress, CPD - Procedure Note Primary Surgeon: Gardenia Rice DO Secondary Surgeon: Prince Cantu MD; assistance required for safe completion, Maranda LANDAVERDE Anesthesia Provider: Roxie Castillo Anesthesia Technique: Epidural Pathology: None Estimated Blood Loss (mL): 800 Indications: NRFHT, 40.1w, Failure to progress Findings: Normal appearing uterus, tubes, ovaries Complications: None - Other Other Information/Narrative: Under adequate epidural anaesthetic with a shultz catheter inserted, the patient was prepped and draped in the usual sterile fashion in the supine position with a leftward tilt. A Pfannensteil incision was made. The incision was carried down to the fascia with cautery. The fascia was incised transversely and dissected off the rectus muscle using blunt and sharp dissection. Electrocautery was used for hemostasis. The peritoneum was opened taking care not to injure the bladder. The vesicouterine peritoneum was dissected off the lower uterine segment. The lower segment was assessed and a low transverse incision was made. The uterine incision was extended bluntly. The fetus was presenting as a vertex. Nuchal x1 noted and reduced after body delivery. The head was delivered without difficulty and the rest of the body followed easily. After one minute of delayed cord clamping, the cord was clamped twice and cut and the baby transferred to the warmer, awaiting the pediatric staff. The placenta was then delivered with assistance. The uterus was explored and was empty of all tissue. The uterus was exteriorized for better visualization. The uterine incision was then closed in one layer with 0-Monocryl suture. Tubes and ovaries were examined and appeared normal. Fascia closed with 0-Vicryl in a running unlocked fashion. Subcutaneous layer closed with 3-0 chromic. The skin was then reapproximated with 3-0 Monocryl. At the end of the procedure all sponges, instruments, and sharps were counted and correct. Estimated blood loss was 600cc. The patient and baby were taken to the recovery in stable condition. 4138g, Apgars 8/9.
[2022-06-07] MEDS ORDERED: MIDAZOLAM 2 MG/2 ML VIAL ONE (08:19)
[2022-06-07] MEDS ORDERED: LACTATED RINGERS 1,000 ML IV SCH ×2 (09:00→10:00)
[2022-06-07] MEDS ORDERED: MORPHINE 2 MG/ML CARPUJECT IVP PRN (09:15)
[2022-06-07] MEDS ORDERED: ePHEDrine 50 MG/ML VIAL IVP PRN (09:15)
[2022-06-07] MEDS ORDERED: METOCLOPRAMIDE 10 MG/2 ML VIAL IVP PRN (09:15)
[2022-06-07] MEDS ORDERED: fentaNYL 100 MCG/2 ML VIAL IVP PRN (09:15)
[2022-06-07] MEDS ORDERED: HYDROmorphone 0.5 MG/0.5 ML SYRINGE IVP PRN (09:15)
[2022-06-07] MEDS ORDERED: ONDANSETRON 4 MG/2 ML VIAL IVP PRN (09:15)
[2022-06-07] MEDS ORDERED: ATROPINE ABBOJECT 1 MG/10 ML SYRINGE IVP PRN (09:15)
--- NOTE | 2022-06-07 09:23 | ANESTHESIA POST OP EVALUATION ---
Anesthesia Post Eval - Post Anesthesia Eval Vitals: Last Vital Signs Temp 37.1 C 06/07/22 08:44 Pulse 83 06/07/22 08:50 Resp 16 06/07/22 08:50 BP 101/71 06/07/22 08:50 Pulse Ox 100 06/07/22 08:50 O2 Flow Rate
--- NOTE | 2022-06-07 09:23 | ANESTHESIA ---
Pre-Anesthesia VS, & Labs - Diagnosis failure to progress - Procedure C/S Vital Signs: Temp Pulse Resp BP Pulse Ox O2 Flow Rate 37.1 C 83 16 101/71 100 06/07/22 08:44 06/07/22 08:50 06/07/22 08:50 06/07/22 08:50 06/07/22 08:50 Height: 5 ft 4 in Weight (kg): 81.647 kg Body Mass Index: 30.9 BMI Classification: Obese - NPO >8 hours - Is Patient ?: Yes - Lab Results Current Lab Results: Laboratory Tests 06/05/22 12:15: Sodium 131 L, Potassium 3.7, Chloride 104, Carbon Dioxide 19 L, Anion Gap 8.0, BUN 10, Creatinine 0.4, Estimated GFR (MDRD) 193, Glucose 97, Calcium 8.7, Total Bilirubin 0.7, AST 17, ALT 11, Alkaline Phosphatase 213 H, Total Protein 6.9, Albumin 3.1 L, Globulin 3.8, Albumin/Globulin Ratio 0.8 L 06/05/22 12:15: WBC 7.9, RBC 4.42, Hgb 12.0, Hct 36.8 L, MCV 83.3, MCH 27.1, MCHC 32.6, RDW 13.0, Plt Count 163, MPV 12.7 H, Neut # (Auto) 5.4, Lymph # (Auto) 1.6, [place] # (Auto) 0.6, Eos # (Auto) 0.3, Baso # (Auto) 0.0, Absolute Nucleated RBC 0.00, Nucleated RBC % 0.0 06/05/22 12:15: Blood Type O POSITIVE, Antibody Screen NEGATIVE Fish Bones: 06/05/22 12:15 06/05/22 12:15 Home Medications and Allergies Active Medications Acetaminophen (Acetaminophen 500 Mg Tablet) 1,000 mg PO Q8H [place] Diphenhydramine HCl (Diphenhydramine Inj 50 Mg/Ml Vial) 12.5 - 25 mg IVP Q6HR PRN PRN Reason: ITCHING Docusate Sodium (Docusate Sodium 100 Mg Capsule) 200 mg PO BID [place] Hydrocortisone (Hydrocortisone 1% Cream 28 Gm Tube) 1 applic TOP QID PRN PRN Reason: Hemorrhoids Hydroxyzine Pamoate (Hydroxyzine Pamoate 25 Mg Capsule) 25 mg PO Q8HR PRN PRN Reason: ITCHING Last Admin: 06/07/22 02:33 Dose: 25 mg Oxytocin/Sodium Chloride (Pitocin/Sodium Chloride) 500 mls @ 999 mls/hr IV PRN PRN; Protocol PRN Reason: POST- HEMORR PREVENTION Lactated Ringer's (Lr) 1,000 mls @ 125 mls/hr IV .Q8H [facility] Last Admin: 06/07/22 06:18 Dose: 125 mls/hr Lactated Ringer's (Lr) 1,000 mls @ 200 mls/hr [id number] .Q5H [facility] Lactated Ringer's (Lr) 1,000 mls @ 100 mls/hr IV .Q10H [facility] Oxytocin/Sodium Chloride (Pitocin/Sodium Chloride) 500 mls @ 999 mls/hr IV PRN PRN; Protocol PRN Reason: POST- HEMORR PREVENTION Ibuprofen (Ibuprofen 600 Mg Tablet) 600 mg PO Q6HR [facility] Ketorolac Tromethamine (Ketorolac 30 Mg/Ml Vial) 30 mg IVP Q6HR [facility] Stop: 06/08/22 06:01 Nalbuphine HCl (Nalbuphine 10 Mg/Ml Amp) 2.5 - 5 mg IVP Q4H PRN PRN Reason: ITCHING Naloxone HCl (Naloxone 0.4 Mg/Ml Vial) 0.1 mg IVP Q2M PRN PRN Reason: RR<8 Naloxone HCl (Naloxone 0.4 Mg/Ml Vial) 0.4 mg IVP .ONCE PRN PRN Reason: Opioid overdose Ondansetron HCl (Ondansetron 4 Mg/2 Ml Vial) 4 mg IVP Q6HR PRN PRN Reason: Nausea / Vomiting Oxycodone HCl (Oxycodone 5 Mg Tablet) 5 mg PO Q4HR PRN PRN Reason: Severe Pain 6 -10 Sodium Chloride (Sodium Chloride Flush 0.9% 10 Ml Syringe) 10 ml IVP PRN PRN PRN Reason: NEEDED PER PROVIDER ORDERS Sodium Chloride (Sodium Chloride Flush 0.9% 10 Ml Syringe) 10 ml IVP Q8H [facility] Last Admin: 06/05/22 23:34 Dose: 10 ml [place]/Glycerin ([place]/Glycerin 1 Pad) 1 pad TOP PRN PRN PRN Reason: Itching Allergies/Adverse Reactions: Allergies Allergy/AdvReac Type Severity Reaction Status Date / Time No Known Drug Allergies Allergy Verified 05/30/19 10:03 Anes History & Medical History - Anesthetic History Anesthesia Complications: reports: No previous complications Family history of Anesthesia Complications: Denies Family history of Malignant Hyperthermia: Denies - Medical History Cardiovascular: reports: None Pulmonary: reports: None Gastrointestinal: reports: None Neuro: reports: None Musculoskeletal: reports: None Skin: reports: None Smoking Status: Never smoker Psychosocial: reports: No issues indicated - Surgical History Other Past Surgical History: no prior surgical history - Obstetrical History : 2 Parity: 1 Events: reports: None Complications: reports: None Exam General: Alert, Oriented x3, Cooperative Dental: WNL Mouth Openin Fingerbreadth Neck Mobility: Normal Mallampati classification: II Thyromental Distance: 4-6 cm Respiratory: Lungs clear Cardiovascular: Regular rate Plan Anesthesia Type: General, Other (dose existing epidural with GETA as back-up) Consent for Procedure(s) Verified and Reviewed: Yes Code Status: Attempt Resuscitation ASA classification: 2-Mild systemic disease Is this case an emergency?: Yes
[2022-06-07] MEDS: oxyCODONE 5 MG TABLET PO PRN ×2 (12:40→12:56)
[2022-06-07] MEDS: KETOROLAC 30 MG/ML VIAL IVP SCH ×2 (14:02→19:54)
[2022-06-07] MEDS: ACETAMINOPHEN 500 MG TABLET PO SCH (17:22)
[2022-06-07] MEDS: SODIUM CHLORIDE FLUSH 0.9% 10 ML SYRINGE IVP SCH (20:00)
[2022-06-07] MEDS: DOCUSATE SODIUM 100 MG CAPSULE PO SCH (22:48)
[2022-06-08] MEDS: ACETAMINOPHEN 500 MG TABLET PO SCH ×4 (01:57→21:12)
[2022-06-08] MEDS: KETOROLAC 30 MG/ML VIAL IVP SCH ×2 (01:57→08:34)
[2022-06-08 07:45] LABS: HCT - HEMATOCRIT 29.3 % (37.0-47.0); HGB - HEMOGLOBIN 9.4 g/dL (12.0-16.0); MEAN CORPUSCULAR HEMOGLOBIN 27.6 pg (27.0-31.0); MEAN CORPUSCULAR HGB CONC 32.1 g/dL (32.0-36.0); MEAN CORPUSCULAR VOLUME 85.9 fL (81.0-99.0); MEAN PLATELET VOLUME 11.5 fL (7.9-10.8); RED BLOOD COUNT 3.41 10^6/uL (4.20-5.40); RED CELL DISTRIBUTION WIDTH 13.4 % (12.0-15.0); WHITE BLOOD COUNT 9.1 x10^3/uL (4.8-10.8)
[2022-06-08] MEDS: miSOPROStoL 100 MCG TABLET BC SCH (11:18)
[2022-06-08] MEDS: DOCUSATE SODIUM 100 MG CAPSULE PO SCH ×3 (11:19→21:12)
[2022-06-08] MEDS: IBUPROFEN 600 MG TABLET PO SCH ×3 (11:24→18:00)
[2022-06-08] MEDS: oxyCODONE 5 MG TABLET PO PRN ×2 (11:25→18:00)
--- NOTE | 2022-06-08 16:15 | PROVIDER PROGRESS NOTE ---
Subjective - Prog Note Date Prog Note Date: 06/08/22 - Subjective Pt reports feeling: Improved Subjective: Comfortable. Minimal lochia. Ambulating, voiding. Tolerating regular diet. Formula feeding. Mood is good. Objective - Vital Signs/Intake & Output Reviewed Vital Signs: Yes Vital Signs: Vital Signs x48h Temp Pulse Resp BP Pulse Ox 06/08/22 16:11 98.8 F 84 18 103/61 97 Intake & Output: Intake & Output 06/05/22 06/06/22 06/07/22 06/08/22 23:59 23:59 23:59 23:59 Intake Total 300 464.125 0749.050 550 Output Total 2000 402 Balance 300 868.315 4009.050 148 - Objective General Appearance: positive: No acute distress Eyes Bilateral: positive: EOMI Respiratory: positive: No respiratory distress Abdomen: positive: Other (soft, appropriately tender, dressing c/d/i) Skin: positive: Color nml Extremities: positive: Non-tender Neurologic/Psychiatric: positive: Oriented x3 - Lab Results Fish Bones: 06/08/22 07:41 06/05/22 12:15 Other Labs: Lab Results x24hrs 06/08/22 Range/Units 07:41 WBC 9.1 (4.8-10.8) x10^3/uL RBC 3.41 L (4.20-5.40) 10^6/uL Hgb 9.4 L (12.0-16.0) g/dL Hct 29.3 L (37.0-47.0) % MCV 85.9 (81.0-99.0) fL MCH 27.6 (27.0-31.0) pg MCHC 32.1 (32.0-36.0) g/dL RDW 13.4 (12.0-15.0) % Plt Count 134 (130-450) 10^3/uL MPV 11.5 H (7.9-10.8) fL Assessment/Plan - Problem List (1) care following delivery Impression: 27yo s/p PCD 06/07/22 for NRFHT/NRFHT/CPD, POD#1 - Recovering well - Routine post operative and care - Anticipate discharge tomorrow (2) Acute postoperative anemia due to expected blood loss Impression: Continue vitamins, oral iron while admitted (3) Single live Impression: Doing well, rooming in with mother (4) 40 weeks gestation of Impression: 4138g, Apgars 8/9
[2022-06-08] MEDS: FERROUS SULFATE 325 MG TABLET PO SCH (18:00)
[2022-06-09] MEDS: IBUPROFEN 600 MG TABLET PO SCH ×3 (00:01→08:58)
[2022-06-09] MEDS: ACETAMINOPHEN 500 MG TABLET PO SCH ×2 (05:06→08:48)
[2022-06-09] MEDS: FERROUS SULFATE 325 MG TABLET PO SCH (08:47)
[2022-06-09] MEDS: DOCUSATE SODIUM 100 MG CAPSULE PO SCH (08:47)
--- NOTE | 2022-06-09 11:04 | PROVIDER PROGRESS NOTE ---
Subjective - Prog Note Date Prog Note Date: 06/09/22 Prog Note Time: 11:02 - Subjective Subjective: PPD#2 Patient is doing well. Ambulating, tolerating regular diet. Pain is well controlled. Bottle feeding. Objective - Vital Signs/Intake & Output Reviewed Vital Signs: Yes Vital Signs: Vital Signs x48h Temp Pulse Resp BP Pulse Ox 06/09/22 07:56 97.7 F 77 16 108/67 100 06/09/22 04:40 98.2 F 80 14 97/55 L 98 Intake & Output: Intake & Output 06/06/22 06/07/22 06/08/22 06/09/22 23:59 23:59 23:59 23:59 Intake Total 477.531 5536.050 550 800 Output Total 2000 402 Balance 952.548 9852.050 148 800 - Objective General Appearance: positive: No acute distress Eyes Bilateral: positive: Normal inspection Respiratory: positive: Breath sounds nml Cardiovascular: positive: Regular rate & rhythm, No murmur, No gallop Abdomen: positive: Non-tender (firm fundus below umbilicus. Incision is clean/dry/intact) Skin: positive: Color nml Extremities: positive: Non-tender, No pedal edema Neurologic/Psychiatric: positive: Oriented x3 - Lab Results Fish Bones: 06/08/22 07:41 06/05/22 12:15 Assessment/Plan - Problem List (1) care following delivery Impression: POD#2 uncomplicated postoperative course. Discharge to home today
--- NOTE | 2022-06-09 11:09 | DISCHARGE SUMMARY ---
Discharge Summary Admit Date: 06/07/22 Discharge Date: 06/09/22 Discharging Provider: Dr. Toledo Primary Care Provider: Dr. Cantu Code Status: Attempt Resuscitation Condition at Discharge: Good Discharge Disposition: 01 Home, Self Care - HPI History of Present Illness: Patient presented for induction of labor secondary to PUPPS versus cholestasis - HOSPITAL COURSE Hospital Course: Patient had a primary section for non-reassuring heart tracing. She had an uncomplicated postoperative course and was discharged to home on postoperative day 2. - ALLERGIES Allergies/Adverse Reactions: Allergies Allergy/AdvReac Type Severity Reaction Status Date / Time No Known Drug Allergies Allergy Verified 05/30/19 10:03 - MEDICATIONS Home Medications: Ambulatory Orders Medication Instructions Recorded Confirmed Benzonatate [Tessalon Perle] 100 - 200 mg PO TID PRN #30 capsule 05/30/19 Polymyxin B/Trimeth Ophth Drop 1 drops EACHEYE Q3H 7 Days #1 05/30/19 [Polytrim Ophth Drops] bottle - PHYSICAL EXAM AT DISCHARGE General Appearance: positive: No acute distress, Alert Eyes Bilateral: positive: Normal inspection Respiratory: positive: Breath sounds nml Cardiovascular: positive: Regular rate & rhythm Abdomen: positive: Non-tender (firm fundus below umbilicus. Incision is clean/dry/intact) Skin: positive: Color nml Extremities: positive: Non-tender, No pedal edema Neurologic/Psychiatric: positive: Oriented x3 - LABS Result Diagrams: 06/08/22 07:41 06/05/22 12:15 - FOLLOW UP Follow Up: Routine follow up with Dr. Cantu in 1 week
--- NOTE | 2022-06-09 11:36 | Discharge Plan ---
Discharge Plan Problem Reviewed?: Yes Disposition: Home, Self Care Condition: Good Diet: Regular Activity Restrictions: no heavy lifting (no driving while taking pain medications and until you can operate the brakes during an emergency) No Smoking: If you smoke, Please STOP! Call for help. Follow-up with: Prince Cantu MD [Primary Care Provider] -
[2022-06-09 12:36] VITALS: BP 101/43
--- NOTE | 2022-06-09 13:32 | Labor Flowsheet ---
Labor Flowsheet Datetime Report Generated by CPN: 06/09/2022 13:32 Datetime: 06/07/2022 09:33 Bedside Blood Glucose: 66 LaborFlag: Labor Datetime: 06/07/2022 08:52 Membranes Ruptured Date/Time: 06/06/2022 19:05 Datetime: 06/07/2022 07:03 VITAL SIGNS NBP Sys/Jyoti/Mean (mmHg): 109 : 68 : 77 Pulse: 107 Datetime: 06/07/2022 07:00 Patient Care Comments: Pt. disconnected from monitor and rolled to OR for Datetime: 06/07/2022 06:59 UTERINE ACTIVITY Monitor Mode: External Frequency (min): irregular Quality: Mild Pattern: Normal: <= 5 Contractions in 10 Minutes Resting Tone (Palpate): Relaxed Contraction Comments: difficult to assess; IUPC dislodged; replaced w/ toco ASSESSMENT A Monitor Mode: External US FHR Baseline Rate : 145 Variability: Moderate 6-25 bpm Accelerations: None Decelerations: Late Category: Category II Comments: questionable late x 1 Datetime: 06/07/2022 06:50 Membrane Comments: IUPC dislodged; replaced w/ external toco Datetime: 06/07/2022 06:38 Patient Position/Activity: High Fowlers Datetime: 06/07/2022 06:30 Duration (sec): 90 Resting Tone IUP (mmHg): 25 Bouton Units (mmHg): 75 Datetime: 06/07/2022 06:25 COMMUNICATION Communication: Provider at Bedside Communication Comments: called for failure to progress and cat 2 strip off and on through out shift Datetime: 06/07/2022 06:19 PATIENT CARE IV/Blood Work: New IV Bag Hung Datetime: 06/07/2022 06:09 VAGINAL EXAM Dilatation (cm): 7.0 Effacement (%): 80 Station: -2 Exam by: Dr. Rice Datetime: 06/07/2022 06:06 MEDICATIONS Pitocin (milliunits): Discontinued Medication Comments: Discontinued per provider Datetime: 06/07/2022 05:45 Pitocin Checklist: At Least 1 Acceleration of 15 bpm x 15 Seconds in 30 Minutes or Adequate Variabi lity; No More than 1 Late Deceleration Occurred in Past 30 Minutes; No More than 2 Variable Decelerat ions > 60 Seconds in Duration and decreasing >60 bpm in 30 minutes; No More than 5 Uterine Contractio ns in 10 Minutes for any 20 Minute Interval; Uterus Palpates Soft between Contractions; IUPC Resting Tone less than 25 mmHg Datetime: 06/07/2022 05:36 Temperature (C): 36.6 Datetime: 06/07/2022 05:00 Monitor Interventions for UA: IUPC Inserted Datetime: 06/07/2022 03:44 SpO2 (%): 100 Datetime: 06/07/2022 02:00 Respirations: 16 Datetime: 06/06/2022 23:15 MONTEVIDEO UNITS (Computed) Contractions in Ten Minutes: 4 IUPC Average Intensity: 60 IUPC Average Resting Tone: 0 Bouton Units (mmHg): 240 Datetime: 06/06/2022 21:52 Stage of : Labor Notification Reason: Status Update; Status; Labor Status Datetime: 06/06/2022 20:45 I/O Interventions: Mendoza Cath Inserted Datetime: 06/06/2022 20:15 FHR Baseline Changes: No Baseline Change Datetime: 06/06/2022 19:56 ANESTHESIA Epidural Procedure: Completed Datetime: 06/06/2022 19:30 Amniotic Fluid Amount: Copious Datetime: 06/06/2022 19:06 Provider Reviewed Strip: Yes Datetime: 06/06/2022 19:05 Membrane Status: Ruptured Membranes Rupture Method: Artificial Amniotic Fluid Color: Clear Amniotic Fluid Odor: None Datetime: 06/06/2022 18:17 PAIN Pain Scale: 4 Datetime: 06/06/2022 18:13 Vaginal Bleeding: None Cervix, Consistency: Moderate Cervix, Position: Posterior Datetime: 06/06/2022 17:45 Pain Presence: Intermittent Pain Type: Cramping Pain Location: Abdomen Datetime: 06/06/2022 11:33 Cervical Ripening Agents: Cytotec @ Datetime: 06/06/2022 05:08 Vital Sign Comments: Pain Goal: 5 Pain Relief Measures: Comfort Measures Pain Coping: Sleeping Datetime: 06/06/2022 02:54 Temperature Route: Oral Datetime: 06/05/2022 23:45 MATERNAL ASSESSMENT Level of Consciousness: Alert DTR's/Clonus: DTRs 1+; No Clonus Headache: Denies Breath Sounds, Left: Clear and Equal Breath Sounds, Right: Clear and Equal Nausea/Vomiting: Denies RUQ Epigastric Pain: Denies Datetime: 06/05/2022 23:42 Monitor Interventions for FHR: Ultrasound Adjusted Datetime: 06/05/2022 23:30 TEACHING Instructional Method: Verbal; Patient Instructed; Verbalized Understanding Plan of Care: Plan of Care Discussed; Vaginal Delivery; Induction Unit Routine: Unit Personnel; Monitoring; Safety/Fall Risk Prevention; Diet/Nutrition Service s; Bathroom Privileges; Medications Labor/Induction: Cervical Ripening Pain Management: PRN Medications; Pain Scale/Goals; Comfort Measures Related: Common Discomforts of ; Hydration Datetime: 06/05/2022 22:30 Pain Assessment Comments: Patient reports some contractions are a 5-6, but others are much less. S tates she will want an epidural, and will let us know when she desires the epidural Datetime: 06/05/2022 21:16 Provider Notified (Name): Dr. Prince Cantu
== END 2022-06-09 13:00 | disposition home or self-care (01) | DRG 786 ==
LOC: WFO 11:34 → FBP 11:35 → WFO 12:39 → FBP 12:40
PROVIDERS: ADMIT Obstetrics & Gynecology; ATTEND Obstetrics & Gynecology Obstetrics
PROC: 3E0DXGC Introduction of Other Therapeutic Substance into Mouth and Pharynx, External Approach (ICD-10-PCS; 2022-06-05)
PROC: 10907ZC Drainage of Amniotic Fluid, Therapeutic from Products of Conception, Via Natural or Artificial Opening (ICD-10-PCS; 2022-06-06)
PROC: 10H07YZ Insertion of Other Device into Products of Conception, Via Natural or Artificial Opening (ICD-10-PCS; 2022-06-07)
PROC: 10D00Z1 Extraction of Products of Conception, Low, Open Approach (ICD-10-PCS; principal; 2022-06-07 07:00)
DX: O26.62 Liver and biliary tract disorders in childbirth (principal); K83.1 Obstruction of bile duct; D62 Acute posthemorrhagic anemia; O69.81X0 Labor and delivery complicated by cord around neck, without compression, not applicable or unspecified; O76 Abnormality in fetal heart rate and rhythm complicating labor and delivery; Z3A.39 39 weeks gestation of pregnancy; Z37.0 Single live birth; O32.4XX0 Maternal care for high head at term, not applicable or unspecified; O26.893 Other specified pregnancy related conditions, third trimester; L29.8 Other pruritus; O99.214 Obesity complicating childbirth
CPT/HCPCS: 36415; 80053; 85025; 85027; 86850; 86900; 86901; A9270; J7120

== ENCOUNTER 2023-11-27 07:26 | Emergency (ER) | payer MEDICAID ==
--- NOTE | 2023-11-27 08:27 | ED Physician Documentation ---
PD HPI HEENT - Stated complaint Stated Complaint: LT SIDE MOUTH PX - Chief complaint Chief Complaint: Heent - History obtained from History obtained from: Patient - History of Present Illness Timing - onset: How many days ago (2) Timing - duration: Days (2) Timing - details: Gradual onset, Still present Location: Tooth Improves: Medication Worsens: Other (pressure on tooth) Associated symptoms: Facial swelling. No: Fever, Congestion, Rhinorrhea Similar symptoms before: Diagnosis (bad tooth) Recently seen: Not recently seen - Additional information Additional information: Skye Sotelo is a 28-year-old female who presents to the emergency department this morning with a chief complaint of dental pain and swelling to her face. She has had this occur to her a number of times and she has had successful treatment with amoxicillin. She has gone in to see the dentist they have recommended a root canal and the patient simply does not have the money to have a root canal done and is asked for extraction. They have discouraged the patient from extraction. She does have a prior history of removal of a tooth and shifting of her otherwise straight teeth. She does not have significant dental caries. Review of Systems Constitutional: denies: Fever Ears: denies: Ear pain Nose: denies: Rhinorrhea / runny nose, Congestion Throat: reports: Dental pain / toothache, Other (Left facial swelling.) Respiratory: denies: Cough GI: denies: Nausea PD PAST MEDICAL HISTORY - Past Medical History Past Medical History: Yes Cardiovascular: None Respiratory: None Neuro: None Endocrine/Autoimmune: None GI: None WATCH DIAL MAKER: None : None HEENT: None Psych: None Musculoskeletal: None Derm: None - Past Surgical History Past Surgical History: Yes /WATCH DIAL MAKER: section - Present Medications Home Medications: Ambulatory Orders Medication Instructions Recorded Confirmed Amoxicillin 875 mg PO BID #14 tablet 11/27/23 - Allergies Allergies/Adverse Reactions: Allergies Allergy/AdvReac Type Severity Reaction Status Date / Time No Known Drug Allergies Allergy Verified 11/27/23 07:36 - Social History Does the pt smoke?: No Smoking Status: Never smoker Does the pt drink ETOH?: Yes Does the pt have substance abuse?: No - Immunizations Immunizations are current?: Yes - POLST Patient has POLST: No PD ED PE NORMAL - Vitals Vital signs reviewed: Yes (Normal) - General General: Alert and oriented X 3, No acute distress, Well developed/nourished - HEENT HEENT: Atraumatic, PERRL, EOMI, Other (There is some mild swelling to the left side of the face. There is tenderness to palpation of the left upper second molar without a fracture to the tooth or prior work. There is an area over the gingival surface that is tender without fluctuance. There is a small protrusion of the gingiva <2mm) - Respiratory Respiratory: No respiratory distress - Derm Derm: Normal color, Warm and dry, No rash - Extremities Extremities: No deformity, No edema - Neuro Neuro: Alert and oriented X 3, manager ecommerce 2-12 intact, No motor deficit, No sensory deficit, Normal speech Eye Opening: Spontaneous Motor: Obeys Commands Verbal: Oriented GCS Score: 15 - Psych Psych: Normal mood, Normal affect Results - Vitals Vitals: Vital Signs - 24 hr 11/26/ 07:36 Temperature 36.5 C Heart Rate 69 Respiratory 16 Rate Blood Pressure 115/68 O2 Saturation 100 Oxygen O2 Source Room air PD Medical Decision Making - ED course Complexity details: considered differential, d/w patient ED course: 28-year-old female with a swelling to the left face a specific tender tooth a prior history of dental infection and requirement for a root canal on a specific tooth. She is having recurrence of symptoms. Will place her on a course of amoxicillin as she has had this successfully treated previously. Departure - Departure Disposition: 01 Home, Self Care Clinical Impression: Dental abscess Condition: Stable Instructions: ED Abscess Dental Prescriptions: Amoxicillin 875 mg PO BID #14 tablet Comments: Skye, today it looks like you have a recurrence of your dental infection and we have E scribed some amoxicillin to the [facility] [place]. Expect to have similar results as you have had previously and follow-up with your dentist as needed.
[2023-11-27 08:49] VITALS: BP 130/82; O2SAT 98
== END 2023-11-27 08:31 | disposition home or self-care (01) ==
LOC: ED 07:26
DX: K04.7 Periapical abscess without sinus (principal)
CPT/HCPCS: 99282; 99283

== ENCOUNTER 2024-02-22 12:45 | Outpatient (CLI) | payer MEDICAID | END 2024-02-22 13:00 | disposition home or self-care (01) | LOC: LAB.N 12:45 | PROVIDERS: ATTEND Physician Assistant Medical | DX: R30.0 Dysuria (principal) | CPT/HCPCS: 87086; 87181 ==